=== PATIENT | female | born 1990 | race Caucasian/White ===

== ENCOUNTER 2019-08-04 10:08 | Emergency (ER) | payer MEDICAID ==
[~2019-08-04] VITALS: Ht 162.6 cm; Wt 62.1 kg
--- NOTE | 2019-08-04 10:30 | NUR ---
frank, pt states "i took ibuprofen last night, woke up w/eye swelling" took benadryl at 530am, on PO ATB levaquin started yesterday for cough. Patient a/ox4, breathing even and unlabored, nos ob ntoed. Needs attended. Attached to the diagnostic cardiac sonographer.
[2019-08-04] MEDS ORDERED: IV NS 0.9% 1,000 ML BAG IV ONE (12:30)
[2019-08-04] MEDS ORDERED: ACETAMINOPHEN 325 MG TABLET PO ONE (12:30)
[2019-08-04] MEDS ORDERED: ACETAMINOPHEN ES 500 MG TABLET ONE (12:32)
[2019-08-04 13:32] VITALS: BP 118/72
--- NOTE | 2019-08-04 13:32 | NUR ---
AMBULATORY WITH STEADY GAIT. NO DISTRESS NOTED. IV removed. Catheter intact and site benign. Pressure and 4x4 applied to site. No bleeding noted. Patient discharged to home in stable condition. Written and verbal after care instructions given. Patient verbalizes understanding of instruction.
== END 2019-08-04 13:33 | disposition home or self-care (01) ==
LOC: ER 10:10
DX: J11.1 Influenza due to unidentified influenza virus with other respiratory manifestations (principal)
CPT/HCPCS: 87804 ×2; 99283; J7030

== ENCOUNTER 2019-11-07 13:48 | Emergency (ER) | payer MEDICAID ==
[~2019-11-07] VITALS: Ht 167.6 cm; Wt 59.4 kg
[2019-11-07 14:02] VITALS: BP 129/86
== END 2019-11-07 15:07 | disposition home or self-care (01) ==
LOC: ER 13:54
DX: J06.9 Acute upper respiratory infection, unspecified (principal); R00.0 Tachycardia, unspecified

== ENCOUNTER 2020-03-04 20:29 | Emergency (ER) | payer MEDICAID ==
[~2020-03-04] VITALS: Ht 162.6 cm; Wt 61.2 kg
[2020-03-04 20:30] VITALS: BP 125/87
[2020-03-04] MEDS ORDERED: ACETAMINOPHEN ES 500 MG TABLET ONE (20:56)
[2020-03-04] MEDS ORDERED: ACETAMINOPHEN 325 MG TABLET PO ONE (21:00)
== END 2020-03-04 20:59 | disposition home or self-care (01) ==
LOC: ER 20:30
DX: I88.9 Nonspecific lymphadenitis, unspecified (principal); H60.91 Unspecified otitis externa, right ear

== ENCOUNTER 2020-03-22 16:35 | Emergency (ER) | payer MEDICAID ==
[~2020-03-22] VITALS: Ht 162.6 cm; Wt 59.0 kg
--- NOTE | 2020-03-22 17:05 | NUR ---
BIBS FROM HOME TO ER BED 16. AAOX4. ANXIOUS AND CRYING. NOT IN RESP DISTRESS. CAME IN FOR R GREAT TOE PAIN WHICH WAS CAUSED BY A CRUSH INJURY. PER PT A GRILL FELL ON HER TOE. PAIN IS 10/10. NAIL AVULSION NOTED W/ MIN BLEEDING. AWAITING MD FOR EVAL
--- NOTE | 2020-03-22 17:16 | NUR ---
METAL PRECISION MACHINE ASSEMBLER DEGRASSE AT BEDSIDE
[2020-03-22] MEDS ORDERED: LIDOCAINE 2% 20 ML MDV ONE (17:24)
[2020-03-22] MEDS ORDERED: BUPIVACAINE 0.5 % PF 150 MG/30 ML VIAL ONE (17:24)
[2020-03-22] MEDS ORDERED: LIDOCAINE 2% 20 ML MDV TP ONE (17:30)
[2020-03-22] MEDS ORDERED: BUPIVACAINE 0.5 % PF 150 MG/30 ML VIAL IJ ONE (17:30)
--- NOTE | 2020-03-22 18:35 | NUR ---
EMT AT BEDSIDE FOR WOUND DRESSING. WOUND IS CLEANSED WITH NS, PAT DRY AND NON ADHERENT, WRAPPED WITH KERLIX.
[2020-03-22] MEDS ORDERED: ONDANSETRON 4 MG TAB.RAPDIS SL ONE (19:00)
[2020-03-22] MEDS ORDERED: oxyCODONE/APAP (5/325 MG) 1 UDTAB TABLET PO ONE (19:00)
[2020-03-22] MEDS ORDERED: TDAP [DIPH/PERTUSSIS/TET] 0.5 ML VIAL IM ONE ×2 (19:00→19:02)
[2020-03-22] MEDS ORDERED: oxyCODONE/APAP (5/325 MG) 1 UDTAB TABLET ONE (19:02)
[2020-03-22] MEDS ORDERED: ONDANSETRON 4 MG TAB.RAPDIS ONE (19:02)
--- NOTE | 2020-03-22 19:18 | NUR ---
Patient discharged to home in stable condition. Written and verbal after care instructions given. Patient verbalizes understanding of instruction. Pt is able to ambulated on steady gait but limping. Pt was assisted to the car on a wheelchair.
[2020-03-22 19:21] VITALS: BP 130/87
== END 2020-03-22 19:21 | disposition home or self-care (01) ==
LOC: ER 16:35
DX: S91.211A Laceration without foreign body of right great toe with damage to nail, initial encounter (principal); W23.0XXA Caught, crushed, jammed, or pinched between moving objects, initial encounter; Y93.89 Activity, other specified; Y92.89 Other specified places as the place of occurrence of the external cause; Y99.8 Other external cause status
CPT/HCPCS: 12001; 73660; 90471; 90715; 99283; A6403 ×2; J3490 ×2; Q0162

== ENCOUNTER 2020-03-24 08:35 | Outpatient (CLI) | payer SELFPAY ==
[2020-03-24] MEDS ORDERED: LIDOCAINE SOLN 4% 50 ML BOTTLE ONE (09:14)
== END 2020-03-24 23:59 | disposition home or self-care (01) ==
LOC: WOU 08:35
PROVIDERS: ATTEND Podiatrist Foot & Ankle Surgery
DX: M79.671 Pain in right foot (principal); S90.112D Contusion of left great toe without damage to nail, subsequent encounter; W20.8XXD Other cause of strike by thrown, projected or falling object, subsequent encounter; Z98.890 Other specified postprocedural states; F41.9 Anxiety disorder, unspecified
CPT/HCPCS: G0463

== ENCOUNTER 2020-03-29 16:55 | Emergency (ER) | payer SELFPAY ==
[~2020-03-29] VITALS: Ht 162.6 cm; Wt 58.1 kg
[2020-03-29 17:17] VITALS: BP 123/77
== END 2020-03-29 19:07 | disposition home or self-care (01) ==
LOC: ER 16:55
DX: S91.211D Laceration without foreign body of right great toe with damage to nail, subsequent encounter (principal); X58.XXXD Exposure to other specified factors, subsequent encounter

== ENCOUNTER 2020-04-07 17:00 | Emergency (ER) | payer MEDICAID ==
[~2020-04-07] VITALS: Ht 170.2 cm; Wt 77.1 kg
[2020-04-07 17:27] VITALS: BP 125/76
== END 2020-04-07 17:56 | disposition home or self-care (01) ==
LOC: ER 17:02
DX: S91.101A Unspecified open wound of right great toe without damage to nail, initial encounter (principal); X58.XXXA Exposure to other specified factors, initial encounter; Y93.89 Activity, other specified; Y92.89 Other specified places as the place of occurrence of the external cause; Y99.8 Other external cause status

== ENCOUNTER 2020-04-12 15:00 | Outpatient (CLI) | payer SELFPAY | END 2020-04-12 23:59 | disposition home or self-care (01) | LOC: WOU 15:00 | PROVIDERS: ATTEND Podiatrist Foot & Ankle Surgery | DX: L60.1 Onycholysis (principal) | CPT/HCPCS: 11730 ==

== ENCOUNTER 2022-01-07 16:27 | Emergency (ER) | payer MEDICAID ==
[~2022-01-07] VITALS: Ht 162.6 cm; Wt 61.2 kg
--- NOTE | 2022-01-07 16:37 | NUR ---
TO ER BED 16. LOWER ABDOMINAL PAIN AND VAGINAL BLEEDING SINCE THIS MORNING. PATIENT STATED 7/10 ON PAIN SCALE. VITALS ARE WITHIN NORMAL LIMITS, NO RESPIRATORY DISTRESS NOTED. AWAITING EVAL.
--- NOTE | 2022-01-07 16:59 | NUR ---
URINE COLLECTED AND SENT
--- NOTE | 2022-01-07 17:01 | NUR ---
IV ESTABLISHED R AC 20G. LABS DRAWN AND COLLECTED AT BEDSIDE.
[2022-01-07] MEDS: IV NS 0.9% 1,000 ML BAG IV ONE (17:10)
[2022-01-07 17:15] LABS: BASOPHILS # (AUTO) 0.1 K/uL (0.0-0.2); BASOPHILS % (AUTO) 0.9 % (0.0-2.0); HEMATOCRIT 32 % (33-45); HEMOGLOBIN 10.2 g/dL (11.5-14.8); LYMPHOCYTES # (AUTO) 2.3 K/uL (0.8-4.8); LYMPHOCYTES % (AUTO) 33.7 % (20.0-44.0); MEAN CORPUSCULAR HGB CONC 32 g/dl (31.0-36.0); MEAN CORPUSCULAR VOLUME 71 fL (82-100); MONOCYTES # (AUTO) 0.6 K/uL (0.1-1.30); MONOCYTES % (AUTO) 9.4 % (2.0-12.0); NEUTROPHILS # (AUTO) 3.8 K/uL (1.8-8.9); PLATELET COUNT (AUTO) 370 K/uL (150-450); RED BLOOD CELL COUNT(AUTO) 4.51 MIL/uL (4.0-5.2); WHITE BLOOD COUNT (AUTO) 6.9 K/uL (4.3-11.0)
[2022-01-07 17:37] LABS: BILIRUBIN,URINE NEGATIVE (NEGATIVE); COLOR,URINE YELLOW (YELLOW); LEUKOCYTE ESTERASE ,URINE NEGATIVE (NEGATIVE); NITRITE, URINE NEGATIVE (NEGATIVE); PH,URINE 6.5 (5.0-8.0); PROTEIN,URINE NEGATIVE (NEGATIVE); UGLUCOSE NEGATIVE (NEGATIVE); UROBILINOGEN,URINE 0.2 EU/dL (0.2)
--- NOTE | 2022-01-07 17:45 | NUR ---
ULTRASOUND AT BEDSIDE
[2022-01-07 17:46] LABS: ALBUMIN 3.8 g/dL (3.4-5.0); BILIRUBIN,DIRECT 0.1 mg/dL (0.0-0.2); BILIRUBIN,TOTAL 0.3 mg/dL (0.2-1.0); CALCIUM, SERUM 8.9 mg/dL (8.5-10.1); CREATININE 0.5 mg/dL (0.6-1.3); POTASSIUM 3.3 mmol/L (3.5-5.1); TOTAL PROTEIN, SERUM 8.3 g/dL (6.4-8.2)
[2022-01-07 17:55] LABS: BACTERIA,URINE None seen /HPF (None Seen); RBC,URINE 51-80 /HPF (0-2); WBC,URINE 0-2 /HPF (0-3)
[2022-01-07 18:19] LABS: BAND % (MANUAL) 1 % (0.0-5.0); LYMPHOCYTES % (MANUAL) 40 % (16-48); MONOCYTES % (MANUAL) 9 % (0-11.0); NEUTROPHILS % (MANUAL) 50 (42-76)
--- NOTE | 2022-01-07 20:17 | NUR ---
Patient discharged to home in stable condition. Written and verbal after care instructions given. Patient verbalizes understanding of instruction. IV line removed and PT ambulatory with steady gait.
[2022-01-07 20:19] VITALS: BP 127/82
== END 2022-01-07 20:19 | disposition home or self-care (01) ==
LOC: ER 16:35
DX: N93.9 Abnormal uterine and vaginal bleeding, unspecified (principal); R10.31 Right lower quadrant pain; R10.32 Left lower quadrant pain; Z87.42 Personal history of other diseases of the female genital tract
CPT/HCPCS: 36415; 76856; 80048; 80076; 81001; 83690; 84702; 84703; 85007; 85025; 86850; 96360; 99284; J7030

== ENCOUNTER 2023-01-24 16:38 | Emergency (ER) | payer BC, MEDICAID ==
[~2023-01-24] VITALS: Ht 160 cm; Wt 53.1 kg
--- NOTE | 2023-01-24 17:00 | NUR ---
RECEIVED PT 32 YRS FAMILE FROM HOME CAME BY PRADONTA FOR DIZZNESS AND HAND CRAMPING HYPERVENTLATION NO WEEKNESS
--- NOTE | 2023-01-24 17:10 | NUR ---
UA SENT TO LAB
--- NOTE | 2023-01-24 17:25 | NUR ---
INSERTED ANGOCATHETER G 20 ON RT AC BLOOD DROW AND SENT TO LAB
[2023-01-24] MEDS ORDERED: IV NS 0.9% 1,000 ML BAG IV ONE (17:30)
[2023-01-24 17:35] LABS: BASOPHILS % (AUTO) 0.4 % (0.0-2.0); EOSINOPHILS % (AUTO) 0.3 % (0.0-6.0); HEMATOCRIT 35 % (33-45); HEMOGLOBIN 11.6 g/dL (11.5-14.8); LYMPHOCYTES # (AUTO) 1.7 K/uL (0.8-4.8); LYMPHOCYTES % (AUTO) 15.6 % (20.0-44.0); MEAN CORPUSCULAR HGB CONC 33 g/dl (31.0-36.0); MEAN CORPUSCULAR VOLUME 80 fL (82-100); MONOCYTES # (AUTO) 0.6 K/uL (0.1-1.30); MONOCYTES % (AUTO) 5.6 % (2.0-12.0); NEUTROPHILS # (AUTO) 8.8 K/uL (1.8-8.9); NEUTROPHILS % (AUTO) 78.1 % (43.0-81.0); PLATELET COUNT (AUTO) 310 K/uL (150-450); RED BLOOD CELL COUNT(AUTO) 4.33 MIL/uL (4.0-5.2); WHITE BLOOD COUNT (AUTO) 11.2 K/uL (4.3-11.0)
[2023-01-24 17:42] LABS: CALCIUM, SERUM 9.5 mg/dL (8.5-10.1); CARBON DIOXIDE 25 mmol/L (21-32); CHLORIDE 103 mmol/L (98-107); CREATININE 0.5 mg/dL (0.6-1.3); GLUCOSE 90 mg/dL (74-106); POTASSIUM 3.5 mmol/L (3.5-5.1); SODIUM SERUM 139 mmol/L (136-145); UREA NITROGEN, BLOOD 11 mg/dL (7-18)
--- NOTE | 2023-01-24 17:45 | NUR ---
rosanna sellers send to lab
--- NOTE | 2023-01-24 18:30 | NUR ---
IVF INFUSED AND PATENT VS STABLE
--- NOTE | 2023-01-24 19:20 | NUR ---
HAND OFF CLARISSA ASTORGA
--- NOTE | 2023-01-24 19:37 | NUR ---
Michael AOx4, able to express her concerns. Michael states she is feeling better, at bedside, per patients request. VSS, no signs of distress. Discussed plan of care, michael verbalized agreement.
--- NOTE | 2023-01-24 21:00 | NUR ---
IV removed. Catheter intact and site benign. Pressure and 4x4 applied to site. No bleeding noted.
[2023-01-24 21:05] VITALS: BP 126/64
== END 2023-01-24 21:05 | disposition home or self-care (01) ==
LOC: ER 16:54
DX: F41.9 Anxiety disorder, unspecified (principal); Z20.822 Contact with and (suspected) exposure to COVID-19
CPT/HCPCS: 99285; 96360; 71045; 87426; 93005; 85025; 80048; 84703; 36415; 84484; J7030; C9803

== ENCOUNTER 2024-06-28 22:36 | Emergency (ER) | payer BC ==
[~2024-06-28] VITALS: Ht 162.6 cm; Wt 54.4 kg
[2024-06-29 00:06] LABS: BASOPHILS % (AUTO) 0.4 % (0.0-2.0); EOSINOPHILS # (AUTO) 0.1 K/uL (0.0-0.7); EOSINOPHILS % (AUTO) 0.7 % (0.0-6.0); HEMATOCRIT 33 % (33-45); HEMOGLOBIN 10.8 g/dL (11.5-14.8); LYMPHOCYTES # (AUTO) 2.7 K/uL (0.8-4.8); MEAN CORPUSCULAR HEMOGLOBIN 26 PG (26.0-33.0); MEAN CORPUSCULAR HGB CONC 32 g/dl (31.0-36.0); MEAN CORPUSCULAR VOLUME 80 fL (82-100); MONOCYTES # (AUTO) 0.8 K/uL (0.1-1.30); MONOCYTES % (AUTO) 10.7 % (2.0-12.0); NEUTROPHILS # (AUTO) 4.1 K/uL (1.8-8.9); NEUTROPHILS % (AUTO) 53.2 % (43.0-81.0); PLATELET COUNT (AUTO) 349 K/uL (150-450); RED BLOOD CELL COUNT(AUTO) 4.16 MIL/uL (4.0-5.2); RED CELL DISTRIBUTION WIDTH 17.9 % (11.5-15.0); WHITE BLOOD COUNT (AUTO) 7.7 K/uL (4.3-11.0)
[2024-06-29 00:15] LABS: CALCIUM, SERUM 9.1 mg/dL (8.5-10.1); CARBON DIOXIDE 27 mmol/L (21-32); CHLORIDE 104 mmol/L (98-107); CREATININE 0.6 mg/dL (0.6-1.3); GLUCOSE 93 mg/dL (74-106); POTASSIUM 3.7 mmol/L (3.5-5.1); SODIUM SERUM 141 mmol/L (136-145); UREA NITROGEN, BLOOD 17 mg/dL (7-18)
[2024-06-29 00:28] LABS: ALANINE AMINOTRANSFERASE 28 U/L (12-78); ALBUMIN 4.2 g/dL (3.4-5.0); ASPARTATE AMINOTRANSFERASE 22 U/L (15-37); BILIRUBIN,TOTAL 0.5 mg/dL (0.2-1.0); NT-PRO BNP 30 pg/mL (0-125); TOTAL PROTEIN, SERUM 8.4 g/dL (6.4-8.2)
[2024-06-29 00:33] LABS: ALKALINE PHOSPHATASE < 10 U/L (46-116)
[2024-06-29 01:11] LABS: APPEARANCE,URINE CLEAR (CLEAR); BILIRUBIN,URINE NEGATIVE (NEGATIVE); BLOOD, URINE NEGATIVE Ery/uL (NEGATIVE); COLOR,URINE YELLOW (YELLOW); KETONES,URINE NEGATIVE (NEGATIVE); LEUKOCYTE ESTERASE ,URINE NEGATIVE (NEGATIVE); NITRITE, URINE NEGATIVE (NEGATIVE); PROTEIN,URINE NEGATIVE (NEGATIVE); UGLUCOSE NEGATIVE (NEGATIVE); UROBILINOGEN,URINE 0.2 EU/dL (0.2)
[2024-06-29 01:14] LABS: PREGNANCY TEST URINE QUAL NEGATIVE (NEGATIVE)
[2024-06-29 01:23] LABS: AMPHETAMINE, URINE NEGATIVE (NEGATIVE); BARBITURATE, URINE NEGATIVE (NEGATIVE); BENZODIAZEPINE, URINE NEGATIVE (NEGATIVE); CANNABINOID, URINE NEGATIVE (NEGATIVE); COCCAINE, URINE NEGATIVE (NEGATIVE); OPIATE, URINE NEGATIVE (NEGATIVE); PHENCYCLIDINE SCREEN,URINE NEGATIVE (NEGATIVE)
[2024-06-29 03:04] VITALS: BP 132/80; TEMP 98.3; O2SAT 100
== END 2024-06-29 03:05 | disposition home or self-care (01) ==
LOC: ER 22:39
DX: R07.89 Other chest pain (principal); Z88.6 Allergy status to analgesic agent
CPT/HCPCS: 36415; 71045-TC; 80053-TC; 83880; 84484-TC; 84703-TC; 85025-TC; 85378-TC

== ENCOUNTER 2025-01-19 02:44 | Emergency (ER) | payer BC ==
[~2025-01-19] VITALS: Ht 162.6 cm; Wt 54.4 kg
[2025-01-19 02:44] VITALS: TEMP 98.5
[2025-01-19 04:09] VITALS: BP 118/72; O2SAT 98
== END 2025-01-19 04:28 | disposition home or self-care (01) ==
LOC: ER 02:46
DX: R07.89 Other chest pain (principal); M25.511 Pain in right shoulder; Z88.6 Allergy status to analgesic agent

== ENCOUNTER 2025-04-27 17:41 | Emergency (ER) | payer BC ==
[~2025-04-27] VITALS: Ht 167.6 cm; Wt 59.0 kg
[2025-04-27 17:52] VITALS: TEMP 100.3
[2025-04-27 18:28] LABS: PLATELET COUNT (AUTO) 260 K/uL (150-450); RED BLOOD CELL COUNT(AUTO) 4.08 MIL/uL (4.0-5.2); RED CELL DISTRIBUTION WIDTH 15.6 % (11.5-15.0); WHITE BLOOD COUNT (AUTO) 6.1 K/uL (4.3-11.0)
[2025-04-27 18:34] LABS: CALCIUM, SERUM 9.1 mg/dL (8.5-10.1); CREATININE 0.5 mg/dL (0.6-1.3); SODIUM SERUM 131.0 mmol/L (136-145); UREA NITROGEN, BLOOD 6.0 mg/dL (7-18)
[2025-04-27] MEDS: ACETAMINOPHEN ES 500 MG TABLET PO ONE (19:00)
[2025-04-27] MEDS: IV NS 0.9% 1,000 ML IV ONE (19:08)
[2025-04-27] MEDS: METOCLOPRAMIDE HCL 10 MG/2 ML VIAL IV ONE (19:09)
[2025-04-27] MEDS: POTASSIUM CHLORIDE 20 MEQ TAB.PRT.SR PO ONE (19:39)
[2025-04-27 20:07] LABS: LYMPHOCYTES % (MANUAL) 7 % (16-48); MONOCYTES % (MANUAL) 7 % (0-11.0); NEUTROPHILS % (MANUAL) 86 (42-76); PLATELET ESTIMATE ADEQUATE
[2025-04-27] MEDS ORDERED: BENZ-13 PO (21:48)
[2025-04-27] MEDS ORDERED: METO-295 PO (21:48)
[2025-04-27] MEDS ORDERED: ACET-637 PO (21:48)
[2025-04-27] MEDS ORDERED: FLUT16SP16 BNOSTRILS (21:48)
[2025-04-27 22:32] VITALS: BP 131/88; O2SAT 99
== END 2025-04-27 22:32 | disposition home or self-care (01) ==
LOC: ER 17:44
DX: U07.1 COVID-19 (principal); R05.9 Cough, unspecified; R06.02 Shortness of breath; R07.89 Other chest pain; E86.0 Dehydration; R11.0 Nausea; Z88.6 Allergy status to analgesic agent
CPT/HCPCS: 99284; 96374; 71045; 96361; 85027; 80048; 85007; 36415; J2765; J7030